=== PATIENT | male | born 1935 | race Caucasian/White ===

== ENCOUNTER 2018-07-28 14:11 | Outpatient (REF) | payer MEDICARE, OTHER, SELFPAY ==
[2018-07-28 19:54] LABS: HCT 35.6 % (40.0-50.0); HGB 12.1 g/dL (13.5-17.5); Mean Corpuscular Hemoglobin 31.4 pg (27.0-33.0); Mean Corpuscular Volume 92.5 fL (80-95); Mean Platelet Volume 10.3 fL (8.0-11.0); Platelet Count 184 x1000/uL (130-400); RBC 3.85 m/cumm (4.50-6.00); RBC Distribution Width 12.9 % (11.8-14.1); White Blood Cell Count 3.76 k/cumm (4.4-10.8)
[2018-07-28 20:20] LABS: Anion Gap 10.2 mmol/L (3-11); BUN 15 mg/dL (7-18); CO2 26.8 mmol/L (21.0-32.0); CREATININE 1.04 mg/dL (0.70-1.30); Calcium 9.2 mg/dL (8.5-10.1); Chloride 102 mmol/L (98-107); Glucose 105 mg/dL (70-100); Sodium 139 mmol/L (136-145)
== END 2018-07-28 14:31 ==
LOC: NCHCN 14:11
PROVIDERS: PCP Physician Assistant; Visit Provider Physician Assistant Medical
DX: D64.9 Anemia, unspecified (principal)
CPT/HCPCS: 80048; 85027

== ENCOUNTER 2019-01-15 17:19 | Outpatient (REF) | payer MEDICARE, OTHER, SELFPAY ==
[2019-01-15 19:26] LABS: C-Reactive Protein 0.19 mg/dL (0.0-0.3); Creatine Kinase 193 U/L (39-308)
[2019-01-15 20:14] LABS: Hemoglobin A1C 5.9 % (4.5-6.2)
[2019-01-15 20:17] LABS: ESR 22 mm/hr (1-20)
== END 2019-01-15 17:39 ==
LOC: NCHCN 17:19
PROVIDERS: PCP Physician Assistant; Visit Provider Nurse Practitioner Family
DX: G62.9 Polyneuropathy, unspecified (principal); Z13.1 Encounter for screening for diabetes mellitus
CPT/HCPCS: 82550; 85652; 83036; 86140

== ENCOUNTER 2021-10-18 18:19 | Outpatient (REF) | payer MEDICARE, OTHER, SELFPAY ==
[2021-10-18 20:28] LABS: Abs Immature Grans 0.01 10^3/uL (0.0-0.06); Absolute Basophil Count 0.02 10^3/uL (0.0-0.2); Absolute Eosinophil Count 0.07 10^3/uL (0.0-0.7); Absolute Lymphocyte Count 1.36 10^3/uL (1.2-3.4); Absolute Monocyte Count 0.43 10^3/uL (0.1-0.8); Basophils % 0.5; Eosinophils % 1.8; HCT 33.4 % (40.0-50.0); Immature Grans % 0.3; MCH 29.9 pg (27.0-33.0); MCHC 32.9 % (32.0-36.0); MCV 91 fL (80-95); MPV 10.2 fL (8.0-11.0); Monocytes % 10.8; Neutrophils % 52.6; Platelet Count 177 10^3/uL (130-400); RBC 3.68 10^6/uL (4.36-5.78); RDW 20.4 % (11.8-14.1); RDW-SD 69.6 fL
[2021-10-18 20:53] LABS: Anisocytosis 2+; Diff Comment RBC Morph Reviewed; Hypochromasia 1+
[2021-10-18 21:13] LABS: Anion Gap 7.8 mmol/L (3-11); BUN 24 mg/dL (7-18); CO2 29.2 mmol/L (21.0-32.0); CREATININE 1.2 mg/dL (0.70-1.30); Calcium 9.1 mg/dL (8.5-10.1); Chloride 104 mmol/L (98-107); Estimated GFR 57.68 (mL/min/1.73m2); Ferritin 35 ng/mL (26-388); Glucose 87 mg/dL (74-106); Potassium 4.4 mmol/L (3.5-5.1); Sodium 141 mmol/L (136-145); Vitamin B12 811 pg/mL (193-986)
[2021-10-18 21:26] LABS: Iron 46 ug/dL (65-175); Total Iron Binding Capacity 379 ug/dL (250-450); Transferrin Sat 12 % (20-55)
== END 2021-10-18 18:20 | disposition home or self-care (01) ==
LOC: NCHCN 18:19
PROVIDERS: PCP Physician Assistant; Visit Provider Internal Medicine
DX: D64.9 Anemia, unspecified (principal); R06.02 Shortness of breath; Z00.00 Encounter for general adult medical examination without abnormal findings; R73.03 Prediabetes
CPT/HCPCS: 80048; 82607; 82728; 83540; 83550; 85025

== ENCOUNTER 2021-10-30 10:11 | Day surgery (SDC) | payer MEDICARE, OTHER, SELFPAY ==
[2021-10-30] VITALS (8 sets, daily range): BP systolic 134–151; BP diastolic 65–84; PULSE 54–64; RESP 14–19; TEMP 36–36.5; O2SAT 93–98; BMI 27.1
[2021-10-30 10:33] LABS: Source Nasal/Nares
[2021-10-30] MEDS: Tropicam./Phenyleph. (1/2.5%) 5 ML BTL OU ×3 (10:55→11:16)
[2021-10-30] MEDS: Lactated Ringers 1,000 ML 80 ML IV (11:15)
[2021-10-30 11:25] LABS: COVID-19 PCR Negative (Negative)
--- NOTE | 2021-10-30 11:42 | W.ANESPRE ---
General Info Date of Service Date Performed: 10/30/21 Height: 5 ft 11 in Weight: 88.2 kg Body Mass Index (BMI): 27.1 Surgical Procedure: Operation Date: 10/30/21 14:40 Proposed Procedure Side Surgeon p Cataract Extraction with IOL Bilateral Bilateral Osman Boland MD Meds Allergies and Home Medications Allergies Allergy/AdvReac Type Severity Reaction Status Date / Time No Known Allergies Allergy Verified 10/30/21 10:34 Home Medication Medication Instructions Recorded diclofenac sodium 1 % topical gel 1 applic topical BID 10/26/21 ferrous sulfate 325 mg (65 mg 325 mg PO DAILY 10/26/21 iron) tablet gabapentin 100 mg capsule 200 mg PO HS 10/26/21 multivit,Ca,wlai-OS-vgwifbii-lutn 1 tab PO DAILY 10/26/21 18 mg-500 mcg-300 mcg-250 mcg tablet (A Thru Z) Current Visit Medications: Current Medications Generic Name Dose Route Start Last Admin Trade Name Freq PRN Reason Stop Dose Admin Acetaminophen 1,000 mg 10/30/21 06:00 Acetaminophen 500 Mg Tab PO Q4H PRN PRN Ringer's Solution 1,000 mls @ 80 mls/hr 10/30/21 06:00 10/30/21 11:15 IV 11/29/21 23:59 80 mls/hr INFUSION FRANCISCO JAVIER Administration IV Miscellaneous Supplies 1 each 10/30/21 06:00 Iv Access IV 11/29/21 23:59 DIRECTED FRANCISCO JAVIER Miscellaneous Medication 0 ml 10/30/21 06:00 Prednisolone 1%, Moxifloxacin 0.5%, Nepafenac 0.1% 5ml Btl OU DIRECTED FRANCISCO JAVIER Miscellaneous Medication 0 ml 10/30/21 06:00 10/30/21 11:16 Tropicam./Phenyleph. (1/2.5%) 5 Ml Btl OU 2 drp DIRECTED FRANCISCO JAVIER Administration Sodium Chloride 0 ml 10/30/21 06:00 Normal Saline Flush 10 Ml Syr IV 11/29/21 23:59 PRN PRN Sodium Chloride 0 ml 10/30/21 06:00 Normal Saline 10 Ml Vial IJ 11/29/21 23:59 DIRECTED PRN Sterile Water 0 ml 10/30/21 06:00 Water,Injection,Sterile 10 Ml Vial IJ 11/29/21 23:59 DIRECTED PRN Tetracaine HCl 0 ml 10/30/21 06:00 Tetracaine 0.5% 4 Ml Btl OU DIRECTED [facility] Medical History Medical History Adenomatous colon polyp Anemia Anemia, iron deficiency Arthritis of left knee Complicated grief [place] (hard of hearing) Localized edema Mild cognitive impairment Is able to sign for self Osteoarthritis Pain in shoulder Peripheral neuropathy Pre-diabetes Rectus diastasis SOB (shortness of breath) Surgical History Surgical History (Updated 10/30/21 @ 10:37 by Chantale Zurita) H/O hernia repair Tobacco Smoking/Tobacco Use Status: Never Alcohol Alcohol Intake: current Alcohol intake frequency: a few times a week Alcohol type: beer Substance Use Substance use: Never Substance use type: does not use Vital Signs and Lab Results Vital Signs Most Recent Vital Signs in EMR: Most Recent Vital Signs Temp Pulse Resp BP Pulse Ox 36.3 C L 62 16 142/84 H 98 10/30/21 10:28 10/30/21 10:28 10/30/21 10:28 10/30/21 10:28 10/30/21 10:28 Lab Results Blood Type / Crossmatch: No Data to Display Complete Blood Count: White Blood Count 4.00 10^3/uL (4.4-10.8) L 10/18/21 17:20 Red Blood Count 3.68 10^6/uL (4.36-5.78) L 10/18/21 17:20 Hemoglobin 11.0 g/dL (13.5-17.5) L 10/18/21 17:20 Hematocrit 33.4 % (40.0-50.0) L 10/18/21 17:20 Platelet Count 177 10^3/uL (130-400) 10/18/21 17:20 Complete Metabolic Panel: Sodium Level 141 mmol/L (136-145) 10/18/21 17:20 Potassium Level 4.4 mmol/L (3.5-5.1) 10/18/21 17:20 Chloride Level 104 mmol/L (98-107) 10/18/21 17:20 Carbon Dioxide Level 29.2 mmol/L (21.0-32.0) 10/18/21 17:20 Blood Urea Nitrogen 24 mg/dL (7-18) H 10/18/21 17:20 Creatinine 1.2 mg/dL (0.70-1.30) 10/18/21 17:20 Estimated GFR/1.73 m2 57.68 (mL/min/1.73m2) 10/18/21 17:20 Calcium Level 9.1 mg/dL (8.5-10.1) 10/18/21 17:20 Glucose Level 87 mg/dL (74-106) 10/18/21 17:20 Liver Function Panel: No Data to Display Coagulation Panel: No Data to Display Cardiac Panel: No Data to Display Arterial Blood Gas: No Data to Display Venous Blood Gas: No Data to Display Pancreas Panel: No Data to Display Thyroid Panel: No Data to Display Infectious Disease: Coronavirus (COVID-19)(PCR) Negative (Negative) 10/30/21 10:20 Coronavirus 2019 Source Nasal/Nares 10/30/21 10:20 Blood Cultures: No Data to Display Toxicology Panel: No Data to Display Anesthesia Assessment and Plan Anesthesia History Personal History: No History of Anesthesia Complications Family History: No Family History of Anesthesia Complications Exercise Tolerance Exercise Tolerance: Metabolic Equivalents>4 Pertinent Negatives Pertinent Negatives: No Symptoms of GERD Cardiac & Pulmonary Exam Cardiac Exam: Normal S1/S2 Heart Sounds Pulmonary Exam: Clear Bilateral Breath Sounds Implantable Cardiac Device Does patient have a Pacemaker or an ICD?: No Airway Exam Known Difficult Airway: No Mallampati Class: 1 Mouth Opening: Normal (> 3cm) Thyromental Distance: Greater than 3 cm Neck Range of Motion: Full ROM Neck Circumference: Normal Teeth Condition: Normal Dentition ASA Classification ASA Score: ASA 2 Emergency Case?: No NPO Status NPO Status: NPO Clears >2 hours, Solids >8 hours Anesthesia Plan Resuscitation Status: Full Code Anesthesia Technique: General Anesthesia Airway Planned: LMA Monitors Used: Standard Monitors
[2021-10-30] MEDS: Tetracaine 0.5% 4 ML BTL OU (13:17)
[2021-10-30] MEDS: Balanced Salt Soln.-PLUS 500 ML BAG ×2 (13:18→13:34)
[2021-10-30] MEDS: Duovisc Viscoelastic System EACH 1 EACH ×2 (13:19→13:35)
[2021-10-30] MEDS: Lidocaine 1% Pres-Free 5 ML VIAL ×2 (13:20→13:37)
[2021-10-30] MEDS: Lidocaine 2% Jelly 6 ML SYR ×2 (13:21→13:37)
[2021-10-30] MEDS: Povidone-Iodine Ophth 30 ML BTL (13:23)
--- NOTE | 2021-10-30 14:08 | W.PM.DSUDISC ---
Discharge Plan Disposition Patient Disposition: HOME Condition: Good Discharge Details Attending Provider: Osman Boland Primary Care Provider: Spencer Bill Home Meds and New Rx's Prescriptions: No Action ferrous sulfate 325 mg (65 mg iron) Tablet 325 mg PO DAILY gabapentin 100 mg Capsule 200 mg PO HS diclofenac sodium 1 % Gel 1 applic TOPICAL BID A Thru Z [id number] Tablet 1 tab PO DAILY Discharge Instructions Stand Alone Forms: Post-op Topical Cataract, Tania Molina (DSU) Discharge Orders Discharge Orders: Discharge Order (Routine); Ordered 10/30/21 Ordered By: Osman Boland DS: Diagnosis Discharge Diagnosis (1) Cortical cataract of both eyes: Status: Resolved (2) Nuclear cataract of both eyes: Status: Resolved
--- NOTE | 2021-10-30 14:10 | ROE_ITS ---
Date of service: 10/30/21 Time of Service: 14:10 Operative Note Operative Note DATE OF PROCEDURE: 10/30/21 PRE-OP DIAGNOSIS: Nuclear/cortical cataract, both eyes POST-OP DIAGNOSIS: same PROCEDURE: Immediately sequential bilateral cataract extraction using phacoemulsification with intraocular lens implants, both eyes SURGEON: Osman Boland Refer to Anesthesia Record PATHOLOGY: none sent COMPLICATIONS: None Patient was transported to: same day Patient's condition: stable Implants: Facundo and [employer] / [employer] Tecnis ZCB00 Indications: Progressive decreased vision due to cataract, both eyes Procedure Description: CATARACT SURGERY OPERATIVE REPORT PREOPERATIVE DIAGNOSIS: Nuclear/cortical cataract, both eyes POSTOPERATIVE DIAGNOSIS: Same OPERATION: Bilateral sequential cataract extraction using phacoemulsification with posterior chamber intraocular lens implant, both eyes IOL OS: IOL Lead Radiation Therapist/Model: [employer] / PATRICIA Tecnis ZCB00 IOL Power: + 21.5 diopters IOL Serial Number: [id number] Optic Diameter: 6.0mm Haptic/Overall Diameter: 13.0mm PHACO INFO OS: Abdirahman [employer] Vision System with OZil and Active [employer]uidics Cumulative Dispersed Energy (CDE): 8.03 seconds IOL OD: IOL Lead Radiation Therapist/Model: [employer] / PATRICIA Tecnis ZCB00 IOL Power: + 19.5 diopters IOL Serial Number: [id number] Optic Diameter: 6.0mm Haptic/Overall Diameter: 13.0mm PHACO INFO OD: Abdirahman [employer] Vision System with OZil and Active [employer]uidics Cumulative Dispersed Energy (CDE): 7.14 seconds SURGEON: Osman Boland MD, PATRICIA ANESTHESIA: General/LMA Monitored Anesthesia Care (MAC), with local sub-tenon's anesthetic infiltration COMPLICATIONS: None SPECIMENS: None INDICATIONS FOR PROCEDURE: The patient is an 86-year-old gentleman with history of progressive decreased vision in both eyes secondary to development of significant bilateral nuclear and cortical cataracts. The option of cataract surgery was offered to the patient and he wished to proceed. Because of his dementia and poor hearing, it was felt safer to do bilateral same-day surgery under general/LMA anesthesia. PROCEDURE: The correct surgical eye was identified and marked as both eyes and the pupils were dilated in the preoperative area using mydriatics and cycloplegics. The dilated pupil size was 7.0 mm. The patient was brought to the operating room where cardiopulmonary monitoring was instituted and surgical time-out was performed, confirming the correct operative eye and IOL power. IV sedation was given and general/LMA anesthesia was instituted. Attention was first directed towar the left eye. Topical anesthesia was administered and ophthalmic povidone-iodine 5% was instilled into the conjunctival fornices. Lidocaine gel was applied to the cornea and the kamron-ocular area was prepped with Betadine 10% solution and draped in the usual sterile fashion for intraocular surgery, including an aperture drape. A Tegaderm transparent film dressing was cut in half and used to cover the lashes and lid margins. Care was taken to sequester the lashes and lid margins under the Tegaderm dressing. A lid speculum was placed between the lids of the operative eye and the Abdirahman Lux[employer] operating microscope was maneuvered into position. Emma scissors were then used to make a conjunctival buttonhole approximately 6mm posterior to the limbus in the inferonasal quadrant. Blunt dissection was carried out to expose bare sclera, and a blunt-tipped sub-tenon?s anesthesia cannula was introduced and passed posteriorly along the globe where non- preserved plain lidocaine was injected into posterior sub-Tenon?s space. A sideport knife was used to make a paracentesis port at the 12:00 postion. Intraocular phenylephrine/lidocaine was injected into the anterior chamber. The anterior chamber was filled with viscoelastic. . A 2.4mm keratome knife was used to construct a two-plane near-clear corneal tunnel extending 2.0mm into clear cornea at the 3:00 position. A flap was raised on the anterior capsule and capsulorhexis forceps were used to complete a continuous curvilinear capsulorhexis of 5.0 mm. Significant zonular laxity was noted. Balanced salt solution was then used to perform cortical cleaving hydrodissection and nuclear hydrodelineation until the lens could be freely rotated within the capsular bag. The lens nucleus was then disassembled and removed within the capsular bag and iris plane using phacoemulsification. Residual cortical material was removed using the 45-degree angled silicone I/A tip with 0.3mm port. The posterior capsule was carefully polished to remove as much residual lens epithelial cells as safely possible. The capsular bag was then inflated and the anterior chamber deepened with viscoelastic. The lens implant described above was inserted into the capsular bag using the PATRICIA Eden Injector. A Kuglen hook was used to dial the IOL into position. Residual viscoelastic was then removed first from posterior to the IOL, then from the anterior chamber using the I/A handpiece. The lens implant was noted to center nicely within the capsular bag. The incisions were stromally hydrated, and the anterior chamber was reformed using BSS. Then 0.5cc of moxifloxacin 1.0mg/ml were injected into the capsular bag and anterior chamber. The incisions were checked with a Weck spear and found to be secure. Several drops of ophthalmic povidone-iodine 5% were then applied to the eye followed by two drops of Imprimis combination prednisolone/moxifloxacin/nepafenac solution. The drapes were removed and a clear plastic protective eye shield was placed over the eye. Attention was then directed toward the right eye, where an entirely new set of instruments, tubing, medications, fluids, gowns, gloves, and drapes were used. Topical anesthesia was administered and ophthalmic povidone-iodine 5% was instilled into the conjunctival fornices. Lidocaine gel was applied to the cornea and the kamron-ocular area was prepped with Betadine 10% solution and draped in the usual sterile fashion for intraocular surgery, including an aperture drape. A Tegaderm transparent film dressing was cut in half and used to cover the lashes and lid margins. Care was taken to sequester the lashes and lid margins under the Tegaderm dressing. A lid speculum was placed between the lids of the operative eye and the Abdirahman Lux[employer] operating microscope was maneuver ed into position. Emma scissors were then used to make a conjunctival buttonhole approximately 6mm posterior to the limbus in the inferonasal quadrant. Blunt dissection was carried out to expose bare sclera, and a blunt-tipped sub-tenon?s anesthesia cannula was introduced and passed posteriorly along the globe where non- preserved plain lidocaine was injected into posterior sub-Tenon?s space. A sideport knife was used to make a paracentesis port at the 7:00 postion. Intraocular phenylephrine/lidocaine was injected into the anterior chamber. The anterior chamber was filled with viscoelastic. A 2.4mm keratome knife was used to construct a two-plane near-clear corneal tunnel extending 2.0mm into clear cornea at the 10:00 position. A flap was raised on the anterior capsule and capsulorhexis forceps were used to complete a continuous curvilinear capsulorhexis of 5.0 mm.. Significant zonular laxity was noted. Balanced salt solution was then used to perform cortical cleaving hydr odissection and nuclear hydrodelineation until the lens could be freely rotated within the capsular bag. The lens nucleus was then disassembled and removed within the capsular bag and iris plane using phacoemulsification. Residual cortical material was removed using the 45-degree angled silicone I/A tip with 0.3mm port. The posterior capsule was carefully polished to remove as much residual lens epithelial cells as safely possible. The capsular bag was then inflated and the anterior chamber deepened with viscoelastic. The lens implant described above was inserted into the capsular bag using the [employer] Eden Injector. A Kuglen hook was used to dial the IOL into position. Residual viscoelastic was then removed first from posterior to the IOL, then from the anterior chamber using the I/A handpiece. The lens implant was noted to center nicely within the capsular bag. The incisions were stromally hydrated, and the anterior chamber was reformed using BSS. Then 0.5cc of moxifloxacin 1 .0mg/ml were injected into the capsular bag and anterior chamber. The incisions were checked with a Weck spear and found to be secure. Several drops of ophthalmic povidone-iodine 5% were then applied to the eye followed by two drops of Imprimis combination prednisolone/moxifloxacin/nepafenac. The drapes were removed and a clear plastic protective eye shield was placed over the eye. The patient was then returned to Same Day Surgery in stable condition.
--- NOTE | 2021-10-30 14:36 | W.ANESPOSTOP ---
Postoperative Evaluation Date, Time and Location Date Performed: 10/30/21 Time Performed: 14:37 Patient Location: PACU Vital Signs Most Recent Imported Vital Signs: Most Recent Vital Signs Temp Pulse Resp BP Pulse Ox 36.5 C 55 L 14 151/65 H 94 10/30/21 14:25 10/30/21 14:33 10/30/21 14:33 10/30/21 14:33 10/30/21 14:33 Pain Score Most Recent Pain Score: Most Recent Pain Score Pain Level 0 10/30/21 14:33 Assessment Mental Status: Awake (Alert & Oriented to Patient Baseline) Airway and Respiratory Function: Patent airway with normal (patient baseline) respiratory exam Cardiovascular Function: Hemodynamically Stable Hydration Status: Adequately Hydrated Nausea & Vomiting: No Nausea or Vomiting Pain: Pt. Denies Any Pain Peripheral Nerve Block: Patient did not receive a nerve block
== END 2021-10-30 15:25 | disposition home or self-care (01) ==
LOC: SUR 10:11
PROVIDERS: PCP Physician Assistant; Visit Provider Ophthalmology
PROC: (CPT 66984; principal; 2021-10-30 14:30)
DX: H25.013 Cortical age-related cataract, bilateral (principal); D50.9 Iron deficiency anemia, unspecified; R60.0 Localized edema; R73.03 Prediabetes; G62.9 Polyneuropathy, unspecified; Z20.822 Contact with and (suspected) exposure to COVID-19
CPT/HCPCS: 66984; 87635; V2632; J1100; J2405; J2704

== ENCOUNTER 2022-10-31 21:16 | Outpatient (REF) | payer MEDICARE, SELFPAY ==
[2022-10-31 21:21] LABS: Abs Immature Grans 0.02 10^3/uL (0.0-0.06); Absolute Basophil Count 0.02 10^3/uL (0.0-0.2); Absolute Eosinophil Count 0.06 10^3/uL (0.0-0.7); Absolute Lymphocyte Count 1.11 10^3/uL (1.2-3.4); Absolute Monocyte Count 0.36 10^3/uL (0.1-0.8); Absolute Neutrophil Count 1.73 10^3/uL (1.2-6.7); Basophils % 0.6; Eosinophils % 1.8; HCT 34.3 % (40.0-50.0); HGB 11.6 g/dL (13.5-17.5); Immature Grans % 0.6; Lymphocytes % 33.6; MCH 33.9 pg (27.0-33.0); MCHC 33.8 % (32.0-36.0); MCV 100 fL (80-95); MPV 10.7 fL (8.0-11.0); Monocytes % 10.9; Neutrophils % 52.5; Platelet Count 185 10^3/uL (130-400); RBC 3.42 10^6/uL (4.36-5.78); RDW 11.9 % (11.8-14.1); RDW-SD 43.9 fL
[2022-10-31 21:57] LABS: ALT 22 U/L (16-63); AST 26 U/L (15-37); Albumin 4.1 g/dL (3.4-5.0); Alkaline Phosphatase 51 U/L (46-116); Anion Gap 9.6 mmol/L (3-11); BUN 23 mg/dL (7-18); Bilirubin, Total 0.5 mg/dL (0.2-1.0); CO2 26.4 mmol/L (21.0-32.0); CREATININE 1.1 mg/dL (0.70-1.30); Calcium 9.3 mg/dL (8.5-10.1); Chloride 105 mmol/L (98-107); Estimated GFR 65.79 (mL/min/1.73m2); Ferritin 41 ng/mL (26-388); Glucose 98 mg/dL (74-106); Potassium 4.3 mmol/L (3.5-5.1); Sodium 141 mmol/L (136-145); Total Protein 7.2 g/dL (6.4-8.2)
== END 2022-10-31 21:17 | disposition home or self-care (01) ==
LOC: NCHCN 21:16
PROVIDERS: PCP Internal Medicine; Visit Provider Physician Assistant
DX: D50.9 Iron deficiency anemia, unspecified (principal)
CPT/HCPCS: 80053; 82728; 85025

== ENCOUNTER 2023-12-26 15:57 | Outpatient (REF) | payer MEDICARE, SELFPAY ==
[2023-12-26 19:26] LABS: Abs Immature Grans 0.02 10^3/uL (0.0-0.06); Absolute Basophil Count 0.02 10^3/uL (0.0-0.2); Absolute Eosinophil Count 0.19 10^3/uL (0.0-0.7); Absolute Lymphocyte Count 1.13 10^3/uL (1.2-3.4); Absolute Monocyte Count 0.31 10^3/uL (0.1-0.8); Absolute Neutrophil Count 1.56 10^3/uL (1.2-6.7); Basophils % 0.6 %; Eosinophils % 5.9 %; HCT 34.6 % (40.0-50.0); HGB 11.4 g/dL (13.5-17.5); Immature Grans % 0.6 %; MCH 33.6 pg (27.0-33.0); MCHC 32.9 % (32.0-36.0); MCV 102 fL (80-95); MPV 10.5 fL (8.0-11.0); Monocytes % 9.6 %; Neutrophils % 48.3 %; Platelet Count 180 10^3/uL (130-400); RBC 3.39 10^6/uL (4.36-5.78); RDW 13.3 % (11.8-14.1); RDW-SD 50.2 fL; WBC 3.23 10^3/uL (4.4-10.8)
[2023-12-26 19:44] LABS: Iron 98 ug/dL (65-175); Total Iron Binding Capacity 302 ug/dL (250-450)
[2023-12-26 20:09] LABS: ALT 20 U/L (16-63); AST 20 U/L (15-37); Albumin 4.1 g/dL (3.4-5.0); Alkaline Phosphatase 67 U/L (46-116); BUN 21 mg/dL (7-18); Bilirubin, Total 0.62 mg/dL (0.2-1.0); CREATININE 1.1 mg/dL (0.70-1.30); Calcium 9.4 mg/dL (8.5-10.1); Chloride 104 mmol/L (98-107); Estimated GFR 65.38 (mL/min/1.73m2); Ferritin 81 ng/mL (26-388); Glucose 88 mg/dL (74-106); Sodium 140 mmol/L (136-145); Total Protein 7.1 g/dL (6.4-8.2)
== END 2023-12-26 15:58 | disposition home or self-care (01) ==
LOC: NCHCN 15:57
PROVIDERS: PCP Internal Medicine; Visit Provider Physician Assistant
DX: R73.03 Prediabetes
CPT/HCPCS: 80053; 82728; 83540; 83550; 85025